=== PATIENT | male | born 1960 | race Caucasian/White ===

== ENCOUNTER 2020-07-11 17:17 | Emergency (ER) | payer BC, SELFPAY | END 2020-07-11 17:30 | disposition left against medical advice (07) | LOC: EXPBETH 17:23 | PROVIDERS: Emergency Provider Nurse Practitioner Family; PCP Internal Medicine | DX: Z53.21 Procedure and treatment not carried out due to patient leaving prior to being seen by health care provider (principal) | CPT/HCPCS: 99199 ==